=== PATIENT | female | born 1965 | race Caucasian/White ===

== ENCOUNTER 2016-10-20 09:03 | Emergency (ER) | payer MEDICAID ==
[~2016-10-20] VITALS: Ht 182.9 cm; Wt 65.8 kg
[~2016-10-20 09:03] MED LIST: VENTOLIN H0.09 MG/Ac IH
[2016-10-20 09:09] VITALS: BP 125/66
--- NOTE | 2016-10-20 09:10 | NUR ---
BIBA TAKEN TO BED 3
[2016-10-20] MEDS ORDERED: ASPIRIN 325 MG TAB PO ONE (09:15)
[2016-10-20] MEDS ORDERED: HYDROcodone/APAP 5/325 MG 1 TAB TAB PO ONE (09:15)
--- NOTE | 2016-10-20 09:17 | NUR ---
51/F BIBA TO ED WITH C/O RIGHT SIDED CHEST WALL PAIN X1 WEEK S/P FALLING AND HITTING CHEST WITH PROPANE BOTTLE. PAIN 9/10. NO EDEMA PRESENT. PAIN ON RADIATING. LUNGS CLEAR BILAT. HR EVEN AND REGULAR. AAOX4. VSS. NO SIGNS OF DISTERSS.
[2016-10-20 10:17] VITALS: BP 125/66
--- NOTE | 2016-10-20 10:17 | NUR ---
Patient discharged with v/s stable. Written and verbal after care instructions given and explained. Patient alert, oriented and verbalized understanding of instructions. Ambulatory with steady gait. All questions addressed prior to discharge. ID band removed. Patient advised to follow up with PMD. Rx of MOTRIN AND TYLENOL #3 given. Patient educated on indication of medication including possible reaction and side effects. Opportunity to ask questions provided and answered.
[2016-10-25] MEDS ORDERED: [UNRECOGNIZED DRUG - OTHER] PO (18:27)
[2016-10-25] MEDS ORDERED: MOTRIN600 MG PO (18:27)
[2016-10-29] MEDS ORDERED: COLACE100 MG PO (16:33)
[2016-10-29] MEDS ORDERED: NOVAPLUS V0.09 MG/Ac IH (16:33)
[2016-10-29] MEDS ORDERED: CLINDAMYCIN300 MG PO (16:33)
[2016-10-29] MEDS ORDERED: TYLENOL WITH CO1 TA1 PO (16:33)
[2016-10-29] MEDS ORDERED: BACTROBAN 2%20 MG/GM TP (16:33)
[2016-10-29] MEDS ORDERED: MOTRIN600 MG PO (16:33)
[2016-10-29] MEDS ORDERED: FLORASTOR250 MG PO (16:33)
[2016-10-29] MEDS ORDERED: HABITROL T14 MG/24 H TD (16:33)
[2016-10-29] MEDS ORDERED: INDERAL20 M1 PO (16:33)
[2016-10-29] MEDS ORDERED: ADVAIR DISKUS 21 DSK IH (16:33)
[2016-10-29] MEDS ORDERED: APLICARE ANTIS118 M2 TP (16:33)
== END 2016-10-20 10:17 | disposition home or self-care (01) ==
LOC: MED 09:04
DX: J44.9 Chronic obstructive pulmonary disease, unspecified (principal); F17.210 Nicotine dependence, cigarettes, uncomplicated
CPT/HCPCS: 36415; 71010; 80053; 84484; 85025; 93005; 99285; Q0092

== ENCOUNTER 2016-10-25 16:34 | Inpatient (IN) | payer MEDICAID ==
[~2016-10-25] VITALS: Ht 182.9 cm; Wt 63.5 kg
[~2016-10-25 16:34] MED LIST changes: +ALBU0.0912 IH; -VENTOLIN H0.09 MG/Ac IH
[2016-10-25 18:22] VITALS: BP 125/75
[2016-10-25] MEDS ORDERED: IBUP-2213 PO (18:27)
[2016-10-25] MEDS ORDERED: ACET10SO PO (18:27)
--- NOTE | 2016-10-25 19:36 | NUR ---
TO ER BED 8
--- NOTE | 2016-10-25 19:45 | NUR ---
51/F BIB SELF HERE FOR RIGHT CALF SWELLING X3DAYS. HX OSTEOPROSIS, RA, EMPHYSEMA, TRANSIENT, SMOKE MAURIJUANA, SPEED. PT DENIES N/V/D; AAOX4 WITH EVEN AND STEADY GAIT; LUNGS CLEAR BL; HR EVEN AND REGULAR; PT DENIES ANY FEVER, CP, SOB, OR COUGH AT THIS TIME; PATIENT STATES PAIN OF 10/10 AT THIS TIME; VSS; PATIENT POSITIONED FOR COMFORT; HOB ELEVATED; BEDRAILS UP X2; BED DOWN. ER MD MADE AWARE OF PT STATUS.
[2016-10-25] MEDS ORDERED: CLINDAMYCIN 600 MG in DEXTROSE 5% 50 ML IV ONE (19:55)
[2016-10-25] MEDS ORDERED: KETOROLAC 30 MG/ML VIAL IVP ONE (19:55)
[2016-10-25 20:29] LABS: BASOPHILS # (AUTO) 0.1 K/uL (0.00-0.22); EOSINOPHILS % (AUTO) 7.1 % (0.0-4.0); HEMATOCRIT 37.6 % (36-48); HEMOGLOBIN 12.6 g/dL (12.0-16.0); LYMPHOCYTES # (AUTO) 1.9 K/uL (2.5-16.5); LYMPHOCYTES % (AUTO) 13.8 % (20.5-51.1); MEAN CORPUSCULAR HEMOGLOBIN 28 pg (27-31); MEAN CORPUSCULAR HGB CONC 34 g/dL (33-37); MEAN CORPUSCULAR VOLUME 83 fL (80-94); MONOCYTES # (AUTO) 0.6 K/uL (0.8-1.0); MONOCYTES % (AUTO) 4.7 % (1.7-9.3); NEUTROPHILS # (AUTO) 9.9 K/uL (1.8-7.7); NEUTROPHILS % (AUTO) 73.4 % (42.2-75.2); PLATELET COUNT (AUTO) 224 K/uL (140-450); RED BLOOD CELL COUNT(AUTO) 4.54 MIL/uL (4.20-5.40); RED CELL DISTRIBUTION WIDTH 11.4 % (11.6-13.7); WHITE BLOOD COUNT (AUTO) 13.5 K/uL (4.8-10.8)
[2016-10-25] MEDS ORDERED: CLINDAMYCIN 600 MG/4 ML VIAL ONE (20:31)
[2016-10-25 20:47] LABS: ANION GAP 15.1 (8-16); CALCIUM 8.7 mg/dL (8.5-10.1); CARBON DIOXIDE 25.8 mmol/L (21-32); CREATININE 1.3 mg/dL (0.6-1.3); POTASSIUM 3.9 mmol/L (3.5-5.1)
[2016-10-25 20:51] LABS: TOTAL BILIRUBIN 0.6 mg/dL (0.0-1.0); TOTAL PROTEIN, SERUM 7.7 g/dL (6.4-8.2)
[2016-10-25 20:53] LABS: INR 1.1 (0.8-1.2); PARTIAL THROMBOPLASTIN TIME 29.2 secs (22-35.6); PROTHROMBIN TIME 10.5 secs (10.8-13.4)
[2016-10-25 20:56] LABS: LACTIC ACID 0.8 mmol/L (0.4-2.0)
[2016-10-25 21:29] LABS: CREATINE KINASE MB 1.3 ng/mL (0-3.6)
[2016-10-25 21:41] LABS: APPEARANCE,URINE SL CLOUDY (CLEAR); BILIRUBIN,URINE NEGATIVE (NEGATIVE); BLOOD, URINE NEGATIVE (NEGATIVE); COLOR,URINE YELLOW (YELLOW); LEUKOCYTE ESTERASE ,URINE NEGATIVE (NEGATIVE); NITRITE, URINE NEGATIVE (NEGATIVE); PH,URINE 5.5 (5.0-9.0); PROTEIN,URINE TRACE (NEGATIVE); UGLUCOSE NEGATIVE (NEGATIVE); UROBILINOGEN,URINE 0.2 EU/dL (0.2 - 1)
[2016-10-25 21:51] LABS: BACTERIA,URINE 2+ /HPF (None Seen); MUCUS,URINE 1+ /LPF (None Seen); RBC,URINE 0-3 /HPF (0-5)
--- NOTE | 2016-10-25 21:58 | NUR ---
Patient will be admitted to care of DR PROCTOR. Admited to TELE. Will go to room 112A. Belongings list completed. Report to MEE RICHTER.
[2016-10-25 22:30] VITALS: BP 95/63
--- NOTE | 2016-10-25 22:30 | NUR ---
Admitted from ED, with chief complaint of RT LEG PAIN, SWELLING, ITCHING. Pt is a 51 y/o ,Female, Awake, Alert and Oriented Cooperative. Initial assessment done. Pt has multiple dry scabs on her extremities and rt leg red, warm to touch and swollen. Pictures taken in ED. Vital signs checked. Pt states her rt leg doesn't really hurt unless she moves it. Her chest hurts because she tripped on a sprinkler yesterday and hit her chest. Will notify MD about the pain medicine. Informed pt that right now, the MD's concern is her rt leg. Pt verbalized understanding. Pt oriented to call light, bed, phone,television, bathroom, smoking policy, visiting hours, procedures, ID bracelet on. Belongings list checked. MRSA swab done per protocol. Call light w/in reach. Pt asking for food as well. No diet ordered. Will notify MD as well.
--- NOTE | 2016-10-25 22:40 | NUR ---
SPOKE TO DR PROCTOR REGARDING PT'S HOME MEDICATION. HE SAID THEY HAVE TO SEE THE PATIENT FIRST BEFORE THEY CAN RECONCILE THE HOME MEDS.
[2016-10-25] MEDS ORDERED: ONDANSETRON 4 MG/2 ML VIAL IVP PRN (23:40)
[2016-10-25] MEDS ORDERED: MORPHINE SULFATE 2 MG/ML SYR IVP PRN (23:40)
[2016-10-25 23:55] LABS: LACTIC ACID 0.4 mmol/L (0.4-2.0)
[2016-10-26 00:30] VITALS: BP 105/62
--- NOTE | 2016-10-26 00:30 | NUR ---
SEEN PT SLEEPING SOUNDLY. PT ON ROOM AIR, WHEEZING BUT NO DISTRESS OBSERVED. VITAL SIGNS CHECKED. PT NOT IN PAIN RIGHT NOW. IVF NS @ 80ML/HR STARTED PER ORDER. PT DENIES ANY OTHER NEEDS. WILL CONTINUE TO MONITOR.
[2016-10-26] MEDS: NACL 0.9% 1,000 ML IV SCH ×3 (00:38→17:41)
--- NOTE | 2016-10-26 00:40 | NUR ---
PT REFUSED HER SEQUENTIAL SINCE HER RT LEG IS SWOLLEN AND LEFT LEG HAS HEALING WOUND.
[2016-10-26 00:57] LABS: FREE T4 (FREE THYROXINE) 3.45 ng/dL (0.76-1.46); THYROID STIMULATING HORMONE < 0.01 uIU/mL (0.34-3.76)
[2016-10-26 04:10] VITALS: BP 111/68
--- NOTE | 2016-10-26 04:10 | NUR ---
SEEN PT ASLEEP. PT STILL WHEEZING BUT NO DISTRESS NOTED ON ROOM AIR. O2 ON STANDBY. VITAL SIGNS CHECKED. WILL CONTINUE TO MONITOR.
[2016-10-26] MEDS ORDERED: CLINDAMYCIN 600 MG/4 ML VIAL ONE (04:47)
[2016-10-26] MEDS: CLINDAMYCIN 600 MG in DEXTROSE 5% 50 ML IV SCH ×3 (05:00→21:28)
[2016-10-26] MEDS: HYDROcodone/APAP 5/325 MG 1 TAB TAB PO PRN ×3 (05:51→17:40)
--- NOTE | 2016-10-26 06:00 | NUR ---
PT CALLED ASKING HELP TO GO TO THE BATHROOM. SEEN PT AWAKE. ASSISTED PT TO GET UP BUT PT SAID SHE HAS TO HOLD ON TO SOMETHING WHILE WALKING. PT'S RIGHT LEG GOT STIFF. OFFERED BEDSIDE COMMODE BUT SAID SHE WILL JUST GO TO THE BATHROOM. KAYY GAXIOLA ASSISTED PT TO THE BATHROOM AND BACK TO BED. PT COMPLAINING OF PAIN ON HER CHEST AND PT SOUNDS CONGESTED AND SHE STATES ITS HARD FOR HER TO COUGH OUT THE PHLEGM. WILL MEDICATE FOR PAIN ORDERED AND WILL NOTIFY MD ABOUT CONGESTION AND WHEEZING. PT KEPT COMFORTABLE IN BED. LEFT LEG WOUND IRRIGATED W/ SALINE THEN CULTURE COLLECTED ORDERED. CALL LIGHT W/IN REACH.
--- NOTE | 2016-10-26 07:10 | NUR ---
ENDORSED TO DAYSHIFT NURSE ABOUT PT'S BELONGINGS SUCH SHARP OBJECTS. TOLD PT THAT IT WILL BE GIVEN BACK TO HER WHEN SHE GOES HOME. PAGED SECURITY EARLIER.
[2016-10-26 08:00] VITALS: BP 102/64
--- NOTE | 2016-10-26 08:05 | NUR ---
RECEIVED REPORT FROM NIGHT NURSE, PT IS AAOX4, ON ROOM AIR. IV TO RIGHT AC 20G INFUSING WELL , RIGHT LOWER LEG SWOLLEN, LEFT LOWER LEG WOUND . INITIAL ASSESSMENT COMPLETED, REVIEWED PLAN OF CARE WITH PT, PT VERBALIZED UNDERSTANDING. ALL SAFETY PRECAUTIONS MET. CALL LIGHT WITHIN REACH. WILL CONTINUE TO MONITOR.
[2016-10-26] MEDS: LACTOBACILLUS RHAMNOSUS GG 1 EACH CAP PO SCH (08:47)
--- NOTE | 2016-10-26 08:49 | NUR ---
DUE MEDICATIONS GIVEN. PT CURRENTLY EATING BREAKFAST ALL NEEDS MET. CALL LIGHT WITHIN REACH.
[2016-10-26] MEDS ORDERED: LACTOBACILLUS RHAMNOSUS GG 1 EACH CAP PO SCH (09:00)
[2016-10-26] MEDS ORDERED: LEVOFLOXACIN 500 MG/D5W PREMIX 100 ML IV SCH (09:00)
--- NOTE | 2016-10-26 09:20 | NUR ---
PATIENT HAS BEEN SCREENED AND CATEGORIZED LOW NUTRITION RISK. PATIENT WILL BE SEEN WITHIN 7 DAYS OF ADMISSION. 10/31/[address]
[2016-10-26 12:00] VITALS: BP 93/61
--- NOTE | 2016-10-26 12:35 | NUR ---
DUE MEDICATION GIVEN. PT CURRENTLY EATING LUNCH. ALL NEEDS MET. CALL LIGHT WITHIN REACH. WILL CONTINUE TO MONITOR
--- NOTE | 2016-10-26 13:56 | NUR ---
PT CURRENTLY SLEEPING. CALL LIGHT WITHIN REACH. WILL CONTINUE TO MONITOR.
--- NOTE | 2016-10-26 15:26 | NUR ---
CM NOTE INITIAL REVIEW SENT TO [facility] FAX# [phone] PH# [phone]
[2016-10-26 15:55] LABS: AMPHETAMINE, URINE POS. ng/ml (NEG <=1000); BARBITURATE, URINE NEG. ng/ml (NEG <=200); BENZODIAZEPINE, URINE NEG. ng/mL (NEG <=200); CANNABINOID, URINE POS. ng/mL (NEG <=50); COCAINE, URINE NEG. ng/mL (NEG <=300); OPIATE, URINE POS. ng/mL (NEG <=2000); PHENCYCLIDINE SCREEN,URINE NEG. ng/mL (NEG <=25)
[2016-10-26 16:00] VITALS: BP 103/47
[2016-10-26] MEDS ORDERED: KETOROLAC 15 MG/ML VIAL IM PRN (16:50)
[2016-10-26] MEDS: PROPRANOLOL 20 MG TAB PO SCH (17:39)
--- NOTE | 2016-10-26 17:43 | NUR ---
DUE MEDICATIONS GIVEN, ALL NEEDS MET, PT C/O 01/04, MEDICATED PER MD ORDERS.
[2016-10-26] MEDS: ACETAMINOPHEN 325 MG TAB PO PRN (18:08)
--- NOTE | 2016-10-26 18:08 | NUR ---
PT TEMP 100.2, MEDICATED PER MD ORDERS. ALL NEEDS MET CALL LIGHT WITHIN REACH. WILL CONTINUE TO MONITOR.
[2016-10-26] MEDS: ALBUTEROL SULFATE/IPRATROPIU 3 ML SOL IH SCH ×2 (19:06→22:35)
[2016-10-26] MEDS: BUDESONIDE 0.5 MG/2 ML NEBU INH SCH (19:06)
[2016-10-26] MEDS ORDERED: FLUTICASONE 100 MCG /SALMETEROL 50 MCG DISK IH SCH (19:30)
--- NOTE | 2016-10-26 19:35 | NUR ---
ENDORSED PLAN OF CARE TO NIGHT NURSE. PT IN STABLE CONDITION.
--- NOTE | 2016-10-26 19:37 | NUR ---
RECEIVED PT IN STABLE CONDITION FROM AM NURSE. AWAKE,ALERT AND ORIENTED X4. ON TEL MONITOR. BRP WITH SOME ASSISTANCE. HAS BSC . INSTRUCTED TO CALL IF NEED ASSISTANCE. HAS IVF INFUSING WELL ON THE RT AC#20. CLEAR AND PATENT. WITH BLE CELLULITIS AND DRY SCABS , RT LEG MORE SWOLLEN ,LT LEG WITH OPEN WOUND. BED ON LOW POSITION, SIDE RAILS UP X2. FREQUENT ROUNDS NEEDED AND CALL LIGHT PLACED WITHIN EASY REACH. PLAN OF CARE DISCUSSED AND VERBALIZED UNDERSTANDING. WILL CONTINUE TO MONITOR.
[2016-10-26 20:00] VITALS: BP 101/70
[2016-10-26] MEDS: SIMVASTATIN 10 MG TAB PO SCH (21:30)
--- NOTE | 2016-10-26 22:43 | NUR ---
PATIENT REQUESTED NOT TO WAKE HER UP FOR HER AT 0300 FOR HER HHN TREATMENT
[2016-10-27] VITALS: BP 91/53
[2016-10-27] MEDS: NACL 0.9% 1,000 ML IV SCH ×2 (01:52→20:59)
--- NOTE | 2016-10-27 02:00 | NUR ---
SLEEPING WELL. NO S/S OF ANY DISCOMFORT NOTED. WILL CONTINUE TO MONITOR.
[2016-10-27] MEDS: ALBUTEROL SULFATE/IPRATROPIU 3 ML SOL IH SCH ×4 (03:00→15:16)
[2016-10-27 04:00] VITALS: BP 109/60
[2016-10-27] MEDS: CLINDAMYCIN 600 MG in DEXTROSE 5% 50 ML IV SCH ×3 (05:12→20:58)
--- NOTE | 2016-10-27 05:30 | NUR ---
IV ACCESS ON THE RT AC INFILTRATED. DISCONTINUED. STARTED A NEW IV ACCESS ON THE RT HAND #22. CLEAR AND PATENT.
--- NOTE | 2016-10-27 05:54 | NUR ---
C/O NAUSEA. MEDICATED WITH ZOFRAN IVP ORDERED.
[2016-10-27] MEDS: PROPRANOLOL 20 MG TAB PO SCH ×4 (06:00→17:06)
[2016-10-27 06:42] LABS: BASOPHILS # (AUTO) 0.1 K/uL (0.00-0.22); BASOPHILS % (AUTO) 0.5 % (0.0-2.0); EOSINOPHILS # (AUTO) 0.4 K/uL (0-0.4); EOSINOPHILS % (AUTO) 2.2 % (0.0-4.0); HEMATOCRIT 33.4 % (36-48); HEMOGLOBIN 11.3 g/dL (12.0-16.0); LYMPHOCYTES # (AUTO) 1.5 K/uL (2.5-16.5); LYMPHOCYTES % (AUTO) 9.2 % (20.5-51.1); MEAN CORPUSCULAR HEMOGLOBIN 28 pg (27-31); MEAN CORPUSCULAR HGB CONC 34 g/dL (33-37); MEAN CORPUSCULAR VOLUME 84 fL (80-94); MONOCYTES # (AUTO) 1.1 K/uL (0.8-1.0); MONOCYTES % (AUTO) 6.8 % (1.7-9.3); NEUTROPHILS % (AUTO) 81.3 % (42.2-75.2); PLATELET COUNT (AUTO) 208 K/uL (140-450); RED CELL DISTRIBUTION WIDTH 11.9 % (11.6-13.7)
--- NOTE | 2016-10-27 06:53 | NUR ---
SLEEPING AT THIS TIME. NO MORE NAUSEA NOTED .
[2016-10-27 07:01] LABS: ANION GAP 12.2 (8-16); CALCIUM 8.5 mg/dL (8.5-10.1); CARBON DIOXIDE 26.4 mmol/L (21-32); CREATININE 0.8 mg/dL (0.6-1.3); POTASSIUM 4.6 mmol/L (3.5-5.1)
[2016-10-27 07:02] LABS: MAGNESIUM 1.8 mg/dL (1.8-2.4); PHOSPHORUS 3.5 mg/dL (2.5-4.9)
--- NOTE | 2016-10-27 07:20 | NUR ---
RECEIVED REPORT FROM NIGHT NURSE, PT IS AAOX4, ON ROOM AIR. IV TO RIGHT HAND, RIGHT LOWER LEG CELLULITIS WITH ARDEN ON IT, LEFT LOWER LEG WOUND, SCABS TO LEFT ELBOW/UPPER ARM. NO S/S OF DISTRESS NOTED. INITIAL ASSESSMENT COMPLETED, REVIEWED PLAN OF CARE WITH PT, PT VERBALIZED UNDERSTANDING. ALL SAFETY PRECAUTIONS MET. CALL LIGHT WITHIN REACH. WILL CONTINUE TO MONITOR.
--- NOTE | 2016-10-27 07:20 | NUR ---
ENDORSED PT IN STABLE CONDITION TO AM NURSE.
[2016-10-27 07:46] VITALS: BP 103/57
[2016-10-27 08:01] LABS: WHITE BLOOD COUNT (AUTO) 16.1 K/uL (4.8-10.8)
[2016-10-27] MEDS: BUDESONIDE 0.5 MG/2 ML NEBU INH SCH (08:03)
[2016-10-27] MEDS: LACTOBACILLUS RHAMNOSUS GG 1 EACH CAP PO SCH (08:43)
[2016-10-27] MEDS: ASPIRIN 325 MG TABEC PO SCH (08:43)
[2016-10-27] MEDS: HYDROcodone/APAP 5/325 MG 1 TAB TAB PO PRN ×2 (08:45→23:16)
--- NOTE | 2016-10-27 08:47 | NUR ---
DUE MEDICATIONS GIVEN, PT CURRENTLY RESTING, C/O PAIN MEDICATED PER MD ORDERS. WILL CONTINUE TO MONITOR.
--- NOTE | 2016-10-27 11:05 | NUR ---
PT CURRENTLY SLEEPING, CALL LIGHT WITH IN REACH. WILL CONTINUE TO MONITOR.
[2016-10-27] MEDS: CHLORHEXADINE GLUC 2% CLOTH TP SCH (12:50)
[2016-10-27] MEDS: MUPIROCIN 2% OINT 22 GM TUBE TP SCH (12:50)
--- NOTE | 2016-10-27 13:24 | NUR ---
FAXED CONCURRENT REVIEW TO [facility] [phone] PHONE DIMA [phone]
[2016-10-27 13:42] LABS: T4 (THYROXINE) 14.2 ug/dL (4.5 - 12.0)
[2016-10-27 13:52] LABS: HEMOGLOBIN A1C 5.7 % (4.8-5.6)
[2016-10-27 16:00] VITALS: BP 104/64
[2016-10-27] MEDS: ACETAMINOPHEN 325 MG TAB PO PRN (17:04)
--- NOTE | 2016-10-27 17:07 | NUR ---
DUE MEDICATIONS GIVEN, TYLENOL FOR TEMP 100.2. ALL NEEDS MET. CALL LIGHT WITHIN REACH. WILL CONTINUE TO MONITOR.
--- NOTE | 2016-10-27 19:28 | NUR ---
ENDORSED PLAN OF CARE TO NIGHT NURSE, PT IN STABLE CONDITION.
--- NOTE | 2016-10-27 19:29 | NUR ---
RECEIVED PT KENDRICK RN PT IS AAOX4 AMULAORY WITH MULTIPLES SCABS AND BLE CELLULITIS, IV ON LEF ARM INFUSING WELL INITIAL ASSESSMENT DONE
[2016-10-27 20:00] VITALS: BP 101/58
[2016-10-27] MEDS: SIMVASTATIN 10 MG TAB PO SCH (20:59)
--- NOTE | 2016-10-27 22:00 | NUR ---
PT IS ASSISTED TO USE BSC NOT DISTRESS NOTED
--- NOTE | 2016-10-27 23:40 | NUR ---
AFTER NORCO GIVEN PT GETTING SLEEP
[2016-10-28] VITALS: BP 103/59
--- NOTE | 2016-10-28 01:40 | NUR ---
PT USING BSC DENIES ANY PAIN OR DISCOMFORT AT THIS TIME
--- NOTE | 2016-10-28 04:00 | NUR ---
SPONGE BATH GIVEN LINEN CHANGED PT REPOSITIONED DENIES ANY DISCOMFORT AT THIS TIME.
[2016-10-28] MEDS: CLINDAMYCIN 600 MG in DEXTROSE 5% 50 ML IV SCH ×3 (04:30→21:25)
[2016-10-28] MEDS: HYDROcodone/APAP 5/325 MG 1 TAB TAB PO PRN ×3 (04:35→13:14)
[2016-10-28 05:22] VITALS: BP 100/63
[2016-10-28] MEDS: PROPRANOLOL 20 MG TAB PO SCH ×5 (05:27→23:17)
--- NOTE | 2016-10-28 06:11 | NUR ---
PT IS ASSISTED TO USE BSC NOT DISTRESS NOTED REMAIN STABLE AT THIS TIME
[2016-10-28 06:49] LABS: BASOPHILS # (AUTO) 0.3 K/uL (0.00-0.22); BASOPHILS % (AUTO) 2.4 % (0.0-2.0); EOSINOPHILS # (AUTO) 0.8 K/uL (0-0.4); EOSINOPHILS % (AUTO) 7.2 % (0.0-4.0); HEMATOCRIT 31.7 % (36-48); HEMOGLOBIN 10.4 g/dL (12.0-16.0); LYMPHOCYTES # (AUTO) 2.4 K/uL (2.5-16.5); LYMPHOCYTES % (AUTO) 21.8 % (20.5-51.1); MEAN CORPUSCULAR HEMOGLOBIN 27 pg (27-31); MEAN CORPUSCULAR HGB CONC 33 g/dL (33-37); MEAN CORPUSCULAR VOLUME 82 fL (80-94); MONOCYTES # (AUTO) 0.9 K/uL (0.8-1.0); MONOCYTES % (AUTO) 7.8 % (1.7-9.3); NEUTROPHILS # (AUTO) 6.7 K/uL (1.8-7.7); NEUTROPHILS % (AUTO) 60.8 % (42.2-75.2); PLATELET COUNT (AUTO) 214 K/uL (140-450); RED BLOOD CELL COUNT(AUTO) 3.86 MIL/uL (4.20-5.40); RED CELL DISTRIBUTION WIDTH 11.6 % (11.6-13.7); WHITE BLOOD COUNT (AUTO) 11.1 K/uL (4.8-10.8)
[2016-10-28 07:01] LABS: ANION GAP 10.9 (8-16); CALCIUM 8.5 mg/dL (8.5-10.1); CARBON DIOXIDE 28.6 mmol/L (21-32); CREATININE 0.8 mg/dL (0.6-1.3); POTASSIUM 4.5 mmol/L (3.5-5.1)
[2016-10-28 07:11] LABS: MAGNESIUM 1.7 mg/dL (1.8-2.4); PHOSPHORUS 4.2 mg/dL (2.5-4.9)
--- NOTE | 2016-10-28 07:25 | NUR ---
RECEIVED PT IN BED. ASLEEP. AROUSABLE TO VOICE. NO SOB NOTED. DENIES ANY PAIN OR DISCOMFORT AT THIS TIME. PT AMBULATORY WITH BEDSIDE COMMODE. SAFETY PRECAUTION IN PLACE, CALL LIGHT WITHIN REACH.
--- NOTE | 2016-10-28 07:35 | NUR ---
PT ENDORSED ON NEXT SHIFT ON STABLE CONDITION FOR CONTINUITY OF CARE. Addendum: 10/28/16 at 2020 by Lizeth Daniel RN DISREGARD ABOVE DOCUMENTATION. WRONG TIME
[2016-10-28 08:00] VITALS: BP 90/62
[2016-10-28] MEDS ORDERED: MAGNESIUM OXIDE 400 MG TAB PO SCH (08:35)
[2016-10-28] MEDS: LACTOBACILLUS RHAMNOSUS GG 1 EACH CAP PO SCH (09:35)
[2016-10-28] MEDS: ASPIRIN 325 MG TABEC PO SCH (09:36)
[2016-10-28] MEDS: MUPIROCIN 2% OINT 22 GM TUBE TP SCH (12:53)
[2016-10-28] MEDS: CHLORHEXADINE GLUC 2% CLOTH TP SCH (12:53)
[2016-10-28 12:56] VITALS: BP 99/68
[2016-10-28] MEDS: BUDESONIDE 0.25 MG/2 ML NEBU INH SCH ×2 (13:35→19:48)
[2016-10-28] MEDS: ALBUTEROL SULFATE/IPRATROPIU 3 ML SOL IH PRN (13:56)
[2016-10-28] MEDS ORDERED: NICOTINE TRANSD SYS 14 MG/24 HR PATCH TD SCH (15:50)
[2016-10-28 16:00] VITALS: BP 109/68
[2016-10-28] MEDS: NICOTINE TRANSD SYS 14 MG/24 HR PATCH TD SCH (16:01)
--- NOTE | 2016-10-28 19:18 | NUR ---
PT WANTS ME TO WAIT UNTIL VIZIT WITH HER IS DONE, NO DISTRESS NOTED
--- NOTE | 2016-10-28 19:25 | NUR ---
REPORT GIVEN TO NEXT SHIFT FOR CONTINUITY OF CARE. PT ON STABLE CONDITION.
--- NOTE | 2016-10-28 19:35 | NUR ---
RECEIVED FROM AM RN IN BED SLEEPING. WAKES UP WHEN TOUCHED. CARE PLANS FOR THE NIGHT DISCUSSED. USES CALL LIGHT FOR HELP. ABLE TO VERBALIZE NEEDS WELL. AFEBRILE. DX. CELLULITIS LOWER BILATERAL EXTREMITIES. A/O X 4.
[2016-10-28] MEDS: SIMVASTATIN 10 MG TAB PO SCH (21:25)
--- NOTE | 2016-10-28 22:00 | NUR ---
PT. IS SLEEPING WELL. CALL LIGHT WITH IN REACH. NO RESTLESSNESS NOTED AT THIS TIME. A/O X 4.
[2016-10-28 23:12] VITALS: BP 113/72
--- NOTE | 2016-10-29 | NUR ---
SLEEPING. CALL LIGHT WITH IN REACH.
[2016-10-29] MEDS: NACL 0.9% 1,000 ML IV SCH ×2 (01:52→06:13)
--- NOTE | 2016-10-29 04:31 | NUR ---
SLEEPING WELL. NO RESTLESSNESS NOTED. CALL LIGHT WITH IN REACH.
[2016-10-29] MEDS: CLINDAMYCIN 600 MG in DEXTROSE 5% 50 ML IV SCH ×2 (05:10→05:32)
[2016-10-29] MEDS: PROPRANOLOL 20 MG TAB PO SCH ×2 (05:32→12:00)
[2016-10-29 07:25] LABS: BASOPHILS # (AUTO) 0.2 K/uL (0.00-0.22); BASOPHILS % (AUTO) 1.8 % (0.0-2.0); HEMATOCRIT 36.3 % (36-48); HEMOGLOBIN 11.8 g/dL (12.0-16.0); LYMPHOCYTES # (AUTO) 2.8 K/uL (2.5-16.5); MEAN CORPUSCULAR HEMOGLOBIN 27 pg (27-31); MEAN CORPUSCULAR HGB CONC 33 g/dL (33-37); MEAN CORPUSCULAR VOLUME 83 fL (80-94); MONOCYTES # (AUTO) 0.6 K/uL (0.8-1.0); MONOCYTES % (AUTO) 7.4 % (1.7-9.3); NEUTROPHILS # (AUTO) 3.8 K/uL (1.8-7.7); NEUTROPHILS % (AUTO) 45.8 % (42.2-75.2); PLATELET COUNT (AUTO) 248 K/uL (140-450); RED BLOOD CELL COUNT(AUTO) 4.36 MIL/uL (4.20-5.40); RED CELL DISTRIBUTION WIDTH 11.4 % (11.6-13.7); WHITE BLOOD COUNT (AUTO) 8.4 K/uL (4.8-10.8)
[2016-10-29] MEDS: BUDESONIDE 0.25 MG/2 ML NEBU INH SCH (07:31)
[2016-10-29] MEDS: ALBUTEROL SULFATE/IPRATROPIU 3 ML SOL IH PRN (07:31)
--- NOTE | 2016-10-29 07:35 | NUR ---
RECEIVED REPORT FROM MEE VALLECILLO. PT IS A/OX4, AMBULATORY, IV ON THE RT FA, PATENT, INTACT, FLUSHING WELL, SCAB NOTED ON PT NOSE, LIPS, BILATERAL LOWER EXTREMITY CELLULITIS NOTED, NO S/S OF RESPIRATORY DISTRESS OR DISCOMFORT NOTED, SAFETY/FALL PRECAUTIONS ARE IN PLACE, DISCUSSED PLAN OF CARE WITH PT, PT VERBALIZED UNDERSTANDING, CALL LIGHT IS WITHIN REACH, WILL CONTINUE TO MONITOR.
[2016-10-29 07:44] LABS: ANION GAP 12.2 (8-16); CALCIUM 8.5 mg/dL (8.5-10.1); CARBON DIOXIDE 28.4 mmol/L (21-32); CREATININE 0.8 mg/dL (0.6-1.3); POTASSIUM 4.6 mmol/L (3.5-5.1)
[2016-10-29 07:50] LABS: MAGNESIUM 1.6 mg/dL (1.8-2.4); PHOSPHORUS 4.4 mg/dL (2.5-4.9)
[2016-10-29 08:00] VITALS: BP 109/77
[2016-10-29] MEDS: ASPIRIN 325 MG TABEC PO SCH (08:51)
[2016-10-29] MEDS: LACTOBACILLUS RHAMNOSUS GG 1 EACH CAP PO SCH (08:51)
--- NOTE | 2016-10-29 08:51 | NUR ---
DUE MEDICATIONS GIVEN, PT TOLERATED WELL, CALL LIGHT WITHIN REACH, WILL CONTINUE TO MONITOR.
[2016-10-29] MEDS: NICOTINE TRANSD SYS 14 MG/24 HR PATCH TD SCH (09:48)
--- NOTE | 2016-10-29 10:51 | NUR ---
PT RESTING IN BED, WATCHING TV, NO S/S OF RESPIRATORY DISTRESS OR DISCOMFORT NOTED, CALL LIGHT WITHIN REACH.
[2016-10-29] MEDS: MUPIROCIN 2% OINT 22 GM TUBE TP SCH (12:32)
[2016-10-29] MEDS: CHLORHEXADINE GLUC 2% CLOTH TP SCH (12:33)
--- NOTE | 2016-10-29 12:51 | NUR ---
PT SITTING IN BED EATING LUNCH AT THIS TIME, CALL LIGHT WITHIN REACH.
--- NOTE | 2016-10-29 15:00 | NUR ---
PT RESTING IN BED, FRIENDS ARE AT BEDSIDE, CALL LIGHT WITHIN REACH.
[2016-10-29 16:00] VITALS: BP 142/80
[2016-10-29] MEDS ORDERED: MAGNESIUM OXIDE 400 MG TAB PO SCH (16:15)
[2016-10-29] MEDS ORDERED: IND20 PO (16:33)
[2016-10-29] MEDS ORDERED: DOCU-264 PO (16:33)
[2016-10-29] MEDS ORDERED: ALBU0.0912 IH (16:33)
[2016-10-29] MEDS ORDERED: ACET1TAB93 PO (16:33)
[2016-10-29] MEDS ORDERED: HAB14T TD (16:33)
[2016-10-29] MEDS ORDERED: CHLO118S2 TP (16:33)
[2016-10-29] MEDS ORDERED: IBUP-2213 PO (16:33)
[2016-10-29] MEDS ORDERED: CLIN300C15 PO (16:33)
[2016-10-29] MEDS ORDERED: FLUT1DSK2 IH (16:33)
[2016-10-29] MEDS ORDERED: SACC250C4 PO (16:33)
[2016-10-29] MEDS ORDERED: BACTO TP (16:33)
--- NOTE | 2016-10-29 17:00 | NUR ---
PT RESTING IN BED, CALL LIGHT IS WITHIN REACH.
--- NOTE | 2016-10-29 18:00 | NUR ---
PT DISCHARGE INSTRUCTIONS GIVEN, ID WRIST BAND REMOVED, IV REMOVED, CATHETER TIP INTACT. PT STABLE UPON DISCHARGE.
== END 2016-10-29 18:00 | disposition home or self-care (01) | DRG 720 ==
LOC: MED 16:34 → MTU 21:11
PROVIDERS: ADMIT Family Medicine; ATTEND Family Medicine
DX: A41.9 Sepsis, unspecified organism (principal); N17.0 Acute kidney failure with tubular necrosis; L03.115 Cellulitis of right lower limb; M94.0 Chondrocostal junction syndrome [Tietze]; E05.90 Thyrotoxicosis, unspecified without thyrotoxic crisis or storm; E87.1 Hypo-osmolality and hyponatremia; E44.0 Moderate protein-calorie malnutrition; R80.9 Proteinuria, unspecified; F19.10 Other psychoactive substance abuse, uncomplicated; Z60.2 Problems related to living alone; E11.622 Type 2 diabetes mellitus with other skin ulcer; E11.51 Type 2 diabetes mellitus with diabetic peripheral angiopathy without gangrene; L97.229 Non-pressure chronic ulcer of left calf with unspecified severity; M81.0 Age-related osteoporosis without current pathological fracture; J44.9 Chronic obstructive pulmonary disease, unspecified; M19.90 Unspecified osteoarthritis, unspecified site; F17.210 Nicotine dependence, cigarettes, uncomplicated; J45.909 Unspecified asthma, uncomplicated; F15.90 Other stimulant use, unspecified, uncomplicated; Z96.653 Presence of artificial knee joint, bilateral; Z59.0 Homelessness; Z86.19 Personal history of other infectious and parasitic diseases; Z83.3 Family history of diabetes mellitus; Z87.81 Personal history of (healed) traumatic fracture; Z80.0 Family history of malignant neoplasm of digestive organs; Z80.41 Family history of malignant neoplasm of ovary; Z68.1 Body mass index [BMI] 19.9 or less, adult
CPT/HCPCS: 36415; 71020; 71100; 76536; 76881; 80048; 80053; 80305; 81001; 82140; 82550; 82553; 83036; 83605; 83735; 84100; 84436; 84439; 84443; 84479; 84484; 84703; 85025; 85610; 85730; 86886; 86900; 86901; 87040; 87070; 87075; 87081; 87086; 87186; 87205; 93005; 93925; 93971; 94640; 96365; 96375; 99285; J1885; J1956; J2405; J3490; J7030; J7060; J7620; J7626; Q0092

== ENCOUNTER 2017-04-02 16:04 | Inpatient (IN) | payer SELFPAY ==
[~2017-04-02] VITALS: Ht 182.9 cm; Wt 63.5 kg
[~2017-04-02 16:04] MED LIST changes: +ACET10SO PO; +ACET1TAB93 PO; +BACTO TP; +CHLO118S2 TP; +CLIN300C5 PO; +DOCU-300 PO; +FLOR250 PO; +FLUT1DSK2 IH; +IBUP-2213 PO; +IND20 PO; +NICO1PAT16 TD
[2017-04-02 16:20] VITALS: BP 123/78
[2017-04-02] MEDS ORDERED: ALBUTEROL 0.083% 2.5 MG/3 ML NEBU INH ONE (17:50)
[2017-04-02] MEDS ORDERED: methylPREDNISolone SS 125 MG/2 ML VIAL IVP ONE (17:50)
[2017-04-02] MEDS ORDERED: IPRATROPIUM 0.02% 0.5 MG/2.5 ML NEBU INH ONE (17:50)
[2017-04-02 18:15] LABS: BASOPHILS # (AUTO) 0.1 K/uL (0.00-0.22); BASOPHILS % (AUTO) 0.9 % (0.0-2.0); EOSINOPHILS # (AUTO) 0.2 K/uL (0-0.4); EOSINOPHILS % (AUTO) 1.2 % (0.0-4.0); HEMOGLOBIN 13.4 g/dL (12.0-16.0); LYMPHOCYTES # (AUTO) 1.9 K/uL (2.5-16.5); LYMPHOCYTES % (AUTO) 12.2 % (20.5-51.1); MEAN CORPUSCULAR HEMOGLOBIN 27 pg (27-31); MEAN CORPUSCULAR HGB CONC 33 g/dL (33-37); MEAN CORPUSCULAR VOLUME 82 fL (80-94); MONOCYTES % (AUTO) 6.2 % (1.7-9.3); NEUTROPHILS # (AUTO) 12.2 K/uL (1.8-7.7); NEUTROPHILS % (AUTO) 79.5 % (42.2-75.2); PLATELET COUNT (AUTO) 219 K/uL (140-450); RED BLOOD CELL COUNT(AUTO) 5.02 MIL/uL (4.20-5.40); RED CELL DISTRIBUTION WIDTH 12.5 % (11.6-13.7); WHITE BLOOD COUNT (AUTO) 15.4 K/uL (4.8-10.8)
[2017-04-02 18:32] LABS: ALBUMIN 3.5 g/dL (3.4-5.0); ANION GAP 14.1 (8-16); CARBON DIOXIDE 27.6 mmol/L (21-32); CREATININE 0.8 mg/dL (0.6-1.3); POTASSIUM 4.7 mmol/L (3.5-5.1); TOTAL BILIRUBIN 0.9 mg/dL (0.0-1.0)
[2017-04-02] MEDS ORDERED: LEVOFLOXACIN 750 MG/D5W PREMIX 150 ML IV ONE (18:45)
[2017-04-02] MEDS ORDERED: HYDROcodone/APAP 7.5/325 MG 1 TAB PO PRN (19:05)
[2017-04-02] MEDS ORDERED: ONDANSETRON 4 MG/2 ML VIAL IVP PRN (19:05)
[2017-04-02 19:43] LABS: PROTHROMBIN TIME 10.3 secs (10.8-13.4)
[2017-04-02 19:44] VITALS: BP 122/75
[2017-04-02 19:49] LABS: AMYLASE 45 U/L (25-115); FREE T4 (FREE THYROXINE) 2.76 ng/dL (0.76-1.46); HDL CHOLESTEROL 77 mg/dL (40-60); LDL (CALC) 61 mg/dL (60-100); MAGNESIUM 1.7 mg/dL (1.8-2.4); PHOSPHORUS 4.9 mg/dL (2.5-4.9); TRIGLYCERIDES 83 mg/dL (30-150)
[2017-04-02] MEDS ORDERED: diphenhydrAMINE 50 MG/ML VIAL IVP PRN (20:05)
[2017-04-02] MEDS ORDERED: MORPHINE SULFATE 4 MG/ML SYR IVP PRN (20:05)
[2017-04-02] MEDS ORDERED: MAGNESIUM OXIDE 400 MG TAB PO SCH (20:10)
[2017-04-02 20:17] LABS: THYROID STIMULATING HORMONE < 0.01 uIU/mL (0.34-3.74)
[2017-04-02] MEDS: DOCUSATE SODIUM 100 MG GELCAP PO SCH (20:46)
[2017-04-02] MEDS: NACL 0.9% 1,000 ML IV SCH (20:46)
[2017-04-02 23:10] LABS: APPEARANCE,URINE CLEAR (CLEAR); BILIRUBIN,URINE NEGATIVE (NEGATIVE); BLOOD, URINE NEGATIVE (NEGATIVE); COLOR,URINE YELLOW (YELLOW); LEUKOCYTE ESTERASE ,URINE NEGATIVE (NEGATIVE); NITRITE, URINE NEGATIVE (NEGATIVE); PH,URINE 6.5 (5.0-9.0); UGLUCOSE 2+ (NEGATIVE)
[2017-04-02 23:19] LABS: BARBITURATE, URINE NEG. ng/ml (NEG <=200); BENZODIAZEPINE, URINE NEG. ng/mL (NEG <=200); CANNABINOID, URINE NEG. ng/mL (NEG <=50); COCAINE, URINE NEG. ng/mL (NEG <=300); OPIATE, URINE NEG. ng/mL (NEG <=2000); PHENCYCLIDINE SCREEN,URINE NEG. ng/mL (NEG <=25)
[2017-04-02] MEDS ORDERED: CLINDAMYCIN 600 MG/4 ML VIAL ONE (23:40)
[2017-04-02] MEDS: CLINDAMYCIN 300 MG in DEXTROSE 5% 50 ML IV SCH (23:45)
[2017-04-02 23:51] VITALS: BP 107/66
[2017-04-03] MEDS ORDERED: PROPRANOLOL 20 MG TAB PO SCH
[2017-04-03 00:46] LABS: RBC,URINE 0-5 (RARE) /HPF (0-5); WBC,URINE 0-5 (RARE) /HPF (0-5)
[2017-04-03] MEDS ORDERED: methylPREDNISolone SS 125 MG/2 ML VIAL IVP SCH (02:00)
[2017-04-03 04:00] VITALS: BP 106/69
[2017-04-03] MEDS: CLINDAMYCIN 300 MG in DEXTROSE 5% 50 ML IV SCH ×3 (05:35→17:52)
[2017-04-03] MEDS ORDERED: CLINDAMYCIN 600 MG/4 ML VIAL ONE (05:36)
[2017-04-03] MEDS: ALBUTEROL SULFATE/IPRATROPIU 3 ML SOL IH SCH ×3 (06:00→18:34)
[2017-04-03 06:40] LABS: BASOPHILS # (AUTO) 0.1 K/uL (0.00-0.22); BASOPHILS % (AUTO) 0.5 % (0.0-2.0); EOSINOPHILS % (AUTO) 0.1 % (0.0-4.0); HEMATOCRIT 41.4 % (36-48); HEMOGLOBIN 13.7 g/dL (12.0-16.0); LYMPHOCYTES # (AUTO) 0.7 K/uL (2.5-16.5); LYMPHOCYTES % (AUTO) 6.3 % (20.5-51.1); MEAN CORPUSCULAR HEMOGLOBIN 27 pg (27-31); MEAN CORPUSCULAR HGB CONC 33 g/dL (33-37); MEAN CORPUSCULAR VOLUME 82 fL (80-94); MONOCYTES % (AUTO) 0.4 % (1.7-9.3); NEUTROPHILS # (AUTO) 9.7 K/uL (1.8-7.7); NEUTROPHILS % (AUTO) 92.7 % (42.2-75.2); PLATELET COUNT (AUTO) 210 K/uL (140-450); RED BLOOD CELL COUNT(AUTO) 5.06 MIL/uL (4.20-5.40)
[2017-04-03 06:52] LABS: CARBON DIOXIDE 26.9 mmol/L (21-32); CREATININE 0.7 mg/dL (0.6-1.3); POTASSIUM 4.9 mmol/L (3.5-5.1)
[2017-04-03 07:01] LABS: WHITE BLOOD COUNT (AUTO) 10.5 K/uL (4.8-10.8)
[2017-04-03 07:05] LABS: PHOSPHORUS 4.7 mg/dL (2.5-4.9)
[2017-04-03 08:29] VITALS: BP 115/84
[2017-04-03] MEDS: CHLORHEXADINE GLUC 2% CLOTH TP SCH (09:00)
[2017-04-03] MEDS: PANTOPRAZOLE 40 MG TABEC PO SCH (09:33)
[2017-04-03] MEDS: DOCUSATE SODIUM 100 MG GELCAP PO SCH ×2 (09:33→21:00)
[2017-04-03] MEDS: ALBUTEROL SULFATE/IPRATROPIU 3 ML SOL IH PRN (09:46)
[2017-04-03] MEDS: MUPIROCIN 2% OINT 22 GM TUBE TP SCH (11:49)
[2017-04-03 12:00] VITALS: BP 111/66
[2017-04-03] MEDS: methylPREDNISolone SS 125 MG/2 ML VIAL IVP SCH ×2 (12:34→21:21)
[2017-04-03] MEDS: NACL 0.9% 1,000 ML IV SCH (14:00)
[2017-04-03 16:30] VITALS: BP 105/88
[2017-04-03] MEDS ORDERED: LEVOFLOXACIN 750 MG/D5W PREMIX 150 ML IV SCH (18:00)
[2017-04-03] MEDS: ACETAMINOPHEN 325 MG TAB PO PRN (18:10)
[2017-04-03 20:00] VITALS: BP 111/53
[2017-04-03] MEDS: PROPRANOLOL 20 MG TAB PO SCH (21:20)
[2017-04-04] VITALS: BP 99/63
[2017-04-04] MEDS: CLINDAMYCIN 300 MG in DEXTROSE 5% 50 ML IV SCH ×3 (00:07→12:31)
[2017-04-04] MEDS: ACETAMINOPHEN 325 MG TAB PO PRN (00:44)
[2017-04-04 04:00] VITALS: BP 109/64
[2017-04-04] MEDS: methylPREDNISolone SS 40 MG/ML VIAL IVP SCH ×2 (04:58→12:30)
[2017-04-04] MEDS: NACL 0.9% 1,000 ML IV SCH (04:59)
[2017-04-04] MEDS: PROPRANOLOL 20 MG TAB PO SCH ×3 (05:00→12:30)
[2017-04-04 06:41] LABS: HEMATOCRIT 40.1 % (36-48); HEMOGLOBIN 13.1 g/dL (12.0-16.0); MEAN CORPUSCULAR HEMOGLOBIN 27 pg (27-31); MEAN CORPUSCULAR HGB CONC 33 g/dL (33-37); MEAN CORPUSCULAR VOLUME 83 fL (80-94); PLATELET COUNT (AUTO) 214 K/uL (140-450); RED BLOOD CELL COUNT(AUTO) 4.83 MIL/uL (4.20-5.40); RED CELL DISTRIBUTION WIDTH 12.9 % (11.6-13.7)
[2017-04-04 06:56] LABS: CARBON DIOXIDE 22.7 mmol/L (21-32); CREATININE 0.7 mg/dL (0.6-1.3); POTASSIUM 4.7 mmol/L (3.5-5.1)
[2017-04-04] MEDS: ALBUTEROL SULFATE/IPRATROPIU 3 ML SOL IH PRN ×2 (07:03→11:15)
[2017-04-04 07:06] LABS: PHOSPHORUS 4.5 mg/dL (2.5-4.9)
[2017-04-04 08:00] VITALS: BP 118/72
[2017-04-04 08:07] LABS: LYMPHOCYTES % (MANUAL) 6 % (20-46); MONOCYTES % (MANUAL) 2 % (5-12)
[2017-04-04] MEDS: DOCUSATE SODIUM 100 MG GELCAP PO SCH (09:27)
[2017-04-04] MEDS: CHLORHEXADINE GLUC 2% CLOTH TP SCH (09:37)
[2017-04-04] MEDS: MUPIROCIN 2% OINT 22 GM TUBE TP SCH (09:37)
[2017-04-04] MEDS: PANTOPRAZOLE 40 MG TABEC PO SCH (09:55)
[2017-04-04 12:00] VITALS: BP 110/68
[2017-04-04] MEDS ORDERED: BUDE1AER IH (13:09)
[2017-04-04] MEDS ORDERED: INFLUENZA VIRUS VACCINE QUAD 0.5 ML SYR IMVAC SCH (13:50)
[2017-04-04] MEDS ORDERED: PNEUMOCOCCAL VACCINE 23 MCG/0.5 ML VIAL IMVAC SCH (13:50)
== END 2017-04-04 14:45 | disposition home or self-care (01) | DRG 871 ==
LOC: MED 16:04 → MTU 19:10
PROVIDERS: ADMIT Family Medicine; ATTEND Family Medicine
PROC: 3E0234Z Introduction of Serum, Toxoid and Vaccine into Muscle, Percutaneous Approach (ICD-10-PCS; principal; 2017-04-04)
PROC: 3E0234Z Introduction of Serum, Toxoid and Vaccine into Muscle, Percutaneous Approach (ICD-10-PCS; 2017-04-04)
DX: A41.9 Sepsis, unspecified organism (principal); J69.0 Pneumonitis due to inhalation of food and vomit; J96.00 Acute respiratory failure, unspecified whether with hypoxia or hypercapnia; N17.0 Acute kidney failure with tubular necrosis; J44.1 Chronic obstructive pulmonary disease with (acute) exacerbation; R65.10 Systemic inflammatory response syndrome (SIRS) of non-infectious origin without acute organ dysfunction; E11.9 Type 2 diabetes mellitus without complications; T38.0X5A Adverse effect of glucocorticoids and synthetic analogues, initial encounter; M81.0 Age-related osteoporosis without current pathological fracture; J45.909 Unspecified asthma, uncomplicated; F15.10 Other stimulant abuse, uncomplicated; E83.42 Hypomagnesemia; E05.90 Thyrotoxicosis, unspecified without thyrotoxic crisis or storm; Z23 Encounter for immunization; Z80.41 Family history of malignant neoplasm of ovary; Z80.0 Family history of malignant neoplasm of digestive organs; Z59.0 Homelessness; Z91.19 Patient's noncompliance with other medical treatment and regimen; Z86.14 Personal history of Methicillin resistant Staphylococcus aureus infection; Y92.89 Other specified places as the place of occurrence of the external cause; Z87.81 Personal history of (healed) traumatic fracture
CPT/HCPCS: 36415; 71010; 80048; 80053; 80305; 81001; 82150; 83036; 83605; 83690; 83735; 83880; 84100; 84439; 84443; 84481; 84484; 85025; 85610; 85730; 87040; 87081; 87086; 90658; 90732; 93005; 93308; 93970; 94640; 96374; 96375; 99285; J1956; J2920; J2930; J3490; J7030; J7060; J7613; J7620; J7644; Q0092